=== PATIENT | female | born 1965 | race Caucasian/White ===

== ENCOUNTER → 2024-12-24 | Day surgery (SDC) | payer OTHER ==
[~2024-12-24] MED LIST: B-COMPLEX1 EACH; BUPIVACAINE LIPOSOME/PF 266 MG/20 ML IJ ONE; CANDICIDAL CAP1 EACH; CELEBREX100 MG PO; DEXAMETHASONE SOD PHOS INJ 4 MG/ML SDV ONE; DEXMEDETOMIDINE HCL 2 ML ONE; EPHEDRINE SULFATE INJ 50 MG/ML VIAL ONE; FENTANYL CITRATE/PF 100MCG/2 ML INJ ONE; GLYCOPYRROLATE INJ 0.2 MG/ML VIAL ONE; HYDROCODONE/APAP 7.5MG-325MG 1 EA TAB ONE; HYDROCORTISONE SOD SUCCINATE 100 MG VIAL ONE; LIDOCAINE HCL 2% LOCAL INJ 5 ML SDV VIAL INJ ONE; MAG GLYCINATE100 MG; MECLIZINE HCL12.5 MG PO; METHOCARBAMOL750 MG PO; METOCLOPRAMIDE HCL 10 MG/2ML VIAL ONE; MIDAZOLAM HCL 2 MG/2 ML VIAL ONE; MULTI-VITAMIN1 EACH PO; NEOSTIGMINE 1 MG/ML 10ML VIAL ONE; ONDANSETRON HCL INJ 2MG/ML 2ML 2 MG/ML VIAL ONE; OS-CAL 500+D T1 EACH PO; PREDNISONE10 MG PO; PRIVIGEN; PROPOFOL IV EMULSION 10 MG/ML 20 ML VIAL ONE; ROCURONIUM BROMIDE 0 ML IV ONE; ROCURONIUM BROMIDE 1 ML IV ONE; SEVOFLURANE INHAL SOLN 250 ML PEN BTL ONE; SODIUM CHLORIDE 0.9% 100 ML ONE; SUCCINYLCHOLINE CHLORIDE 20 MG/ML 10ML VIAL ONE; TYLENOL325 MG PO; ULTRAM 50MG50 MG PO
[2024-12-24] MEDS: CEFAZOLIN SODIUM 2 GM ONE (09:29)
[2024-12-24] MEDS: LACTATED RINGER'S 1,000 ML ONE (09:29)
[2024-12-24 10:19] LABS: BASOPHILS % 0.2 % (0.0-1.0); EOSINOPHILS % 0.2 % (0.0-6.0); LYMPHOCYTES % 16.9 % (18.0-39.1); MONOCYTES % 6.3 % (4.4-11.3); NEUTROPHILS % 75.7 % (38.7-80.0); RED CELL DISTRIBUTION WIDTH 15.6 % (11.7-14.4)
[2024-12-24 15:13] VITALS: TEMP 97
[2024-12-24] MEDS: HYDROCODONE/APAP 7.5MG-325MG 1 EA TAB PO ONE (16:00)
[2024-12-24] MEDS: ONDANSETRON HCL INJ 2MG/ML 2ML 2 MG/ML VIAL IV ONE (16:08)
[2024-12-24] MEDS: METOCLOPRAMIDE HCL 10 MG/2ML VIAL IV ONE (16:15)
[2024-12-24 16:40] VITALS: BP 148/78; PULSE 78; RESP 16; O2SAT 96
== END | disposition home or self-care (01) ==
LOC: OR 05:29
PROVIDERS: ATTEND Orthopaedic Surgery Sports Medicine
DX: S43.431A Superior glenoid labrum lesion of right shoulder, initial encounter (principal); S46.111A Strain of muscle, fascia and tendon of long head of biceps, right arm, initial encounter; X58.XXXA Exposure to other specified factors, initial encounter; M75.101 Unspecified rotator cuff tear or rupture of right shoulder, not specified as traumatic; M75.41 Impingement syndrome of right shoulder; M25.811 Other specified joint disorders, right shoulder; M85.80 Other specified disorders of bone density and structure, unspecified site; M51.369 Other intervertebral disc degeneration, lumbar region without mention of lumbar back pain or lower extremity pain; Z79.891 Long term (current) use of opiate analgesic; Z88.1 Allergy status to other antibiotic agents; Z79.1 Long term (current) use of non-steroidal anti-inflammatories (NSAID); Z79.52 Long term (current) use of systemic steroids; Z79.899 Other long term (current) drug therapy; Z01.810 Encounter for preprocedural cardiovascular examination
CPT/HCPCS: 23430; 29823; 29826; 29827; 36415; 85025; 93005; C1713 ×4; C1889; J0330; J0666; J1100; J1720; J2003; J2250; J2405; J2704; J2710; J2765; J3010; J7050; J7121